=== PATIENT | male | born 1995 | race African-American/Black ===

== ENCOUNTER 2016-12-12 14:14 | Emergency (ER) | payer MEDICAID, OTHER ==
[~2016-12-12] VITALS: Ht 185.4 cm; Wt 70.3 kg
[~2016-12-12 14:14] MED LIST: ALBUTEROL SULF8.5 GM INH; AZITHROMYCIN250 MG ORAL; CIPROFLOXACIN500 M2 ORAL; COLACE100 MG ORAL; CYCLOBENZAPRINE10 MG ORAL; DOXYCYCLINE MO100 MG ORAL; IBUPROFEN600 MG ORAL; KEFLEX500 MG PO; MAGNESIUM CITR296 M1 PO; MOTRIN800 MG PO; MUCINEX600 MG PO; NKM; NORCO 5-325 TA1 EACH ORAL; NYSTATIN15 GM TOPIC; OFLOXACIN5 ML LEFT EYE; ONDANSETRON ODT4 MG ORAL; PHENERGAN/CODE120 ML PO; PHENERGAN25 M1 PO; PREPARATION H1 EACH RC; PROMETHAZINE-C118 M1 ORAL; PROMETHAZINE-D118 ML ORAL; ROBITUSSIN DM5 ML GT; ZITHROMAX250 MG ORAL
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
[2016-12-12] MEDS ORDERED: Norco 5mg/325mg tab ORAL ONE (15:30)
[2016-12-12] MEDS ORDERED: IBUPROFEN600 MG ORAL (15:58)
[2016-12-12 16:08] VITALS: BP 108/67
--- NOTE | 2016-12-12 23:57 | Diagnostic Imaging Report ---
Indications: Pain Technique: Two views of the right humerus Comparison: None Findings: No acute fractures. No dislocations. Joint spaces are preserved Impression: Negative
== END 2016-12-12 16:08 | disposition home or self-care (01) ==
LOC: EMR 15:46
DX: S46.311A Strain of muscle, fascia and tendon of triceps, right arm, initial encounter (principal); S40.021A Contusion of right upper arm, initial encounter; W22.09XA Striking against other stationary object, initial encounter; Y92.9 Unspecified place or not applicable
CPT/HCPCS: 99283

== ENCOUNTER 2017-10-10 22:03 | Emergency (ER) | payer SELFPAY ==
[~2017-10-10] VITALS: Ht 188 cm; Wt 72.1 kg
--- NOTE | 2017-10-10 22:27 | Emergency Room Report ---
History of Present Illness General Chief Complaint: Abdominal Pain Source: Patient Present Illness HPI This a 21-year-old male with no past medical history. He presents with chief complaint abdominal pain for the last 2-3 days. Crampy in nature. Lots of diarrhea. No fever chills but no nausea no vomiting. Does have some mild dysuria with a slight discharge. Has been here frequently in the past for STD. Allergies: Coded Allergies: No Known Allergies (Unverified , 06/13/12) Patient History Past Medical History: see triage record, old chart reviewed Past Surgical History: none Pertinent Family History: none Social History: Denies: smoking Immunizations: other Reviewed Nursing Documentation: PMH: Agreed; PSxH: Agreed Nursing Documentation-PMH Past Medical History: No Stated History Review of Systems Eye: Denies: eye pain, blurred vision ENT: Denies: ear pain, nose congestion, throat swelling Respiratory: Denies: cough, shortness of breath Cardiovascular: Denies: chest pain, palpitations Gastrointestinal: Reports: abdominal pain, diarrhea; Denies: nausea, vomiting Musculoskeletal: Denies: back pain, joint pain Skin: Denies: rash Neurological: Denies: headache, numbness Endocrine: Denies: increased thirst, increased urine Hematologic/Lymphatic: Denies: easy bruising All Other Systems: negative except mentioned in HPI Physical Exam Vital Signs Date Time Temp Pulse Resp B/P (MAP) Pulse Ox O2 Delivery O2 Flow Rate FiO2 10/10/17 22:05 97.9 55 16 112/60 96 Room Air 97.9 vitals normal Sp02 EP Interpretation: reviewed, normal General Appearance: well appearing, no apparent distress, alert Head: normocephalic, atraumatic Eyes: bilateral eye PERRL, bilateral eye EOMI ENT: hearing grossly normal, normal pharynx Neck: full range of motion, supple, no meningismus Respiratory: chest non-tender, lungs clear, normal breath sounds Cardiovascular #1: regular rate, rhythm, no murmur Gastrointestinal: no mass, no organomegaly, no bruit, non-distended, abnormal bowel sounds - increased bowel sounds with gurgling sounds, tenderness - mild Genitourinary: normal inspection, penis normal, scrotum normal, other - no discharge Musculoskeletal: back normal, gait/station normal, normal range of motion Neurologic: alert, oriented x3 Psychiatric: mood/affect normal Skin: warm/dry Medical Decision Making Diagnostic Impression: Primary Impression: Abdominal pain Qualified Codes: R10.84 - Generalized abdominal pain Additional Impression: Urethritis, nonspecific ER Course Patient with abdominal pain. Most likely gastroenteritis with his diarrhea. No evidence of obstruction or acute abdomen. He has no discharge seen on my exam. Most likely Chlamydia. We will go ahead and treat. We'll discharge home. He said he had HIV testing done a few days ago and waiting for results. Lab Results Impression labs unremarkable Last Vital Signs Date Time Temp Pulse Resp B/P (MAP) Pulse Ox O2 Delivery O2 Flow Rate FiO2 10/10/17 22:05 97.9 55 16 112/60 96 Room Air 97.9 Status: improved Disposition: HOME, SELF-CARE Condition: Stable Patient Instructions: Abdominal Pain, Adult Additional Instructions: Follow-up your DrMyra in 3-5 days. Return if worse. KAZ DANIELSON M.D. October 10, 2017 22:27
[2017-10-10] MEDS ORDERED: Ketorolac 30mg Inj IV ONE (22:30)
[2017-10-10 22:36] LABS: APPEARANCE,URINE CLEAR; BILIRUBIN, URINE NEGATIVE (NEGATIVE); COLOR,URINE AMBER; GLUCOSE, URINE (UA) NEGATIVE (NEGATIVE); KETONES,URINE NEGATIVE (NEGATIVE); LEUKOCYTE ESTERASE ,URINE NEGATIVE (NEGATIVE); NITRITE,URINE NEGATIVE (NEGATIVE); PH,URINE 6 (4.5-8.0); PROTEIN,URINE NEGATIVE (NEGATIVE); UROBILINOGEN,URINE NORMAL MG/DL (0.0-1.0)
[2017-10-10 22:43] VITALS: BP 116/64
[2017-10-10 23:12] LABS: ANION GAP 6 mmol/L (5-15); BLOOD UREA NITROGEN 7 mg/dL (7-18); CALCIUM 9.3 MG/DL (8.5-10.1); CARBON DIOXIDE 31 MMOL/L (21-32); CHLORIDE 102 MMOL/L (98-107); CREATININE 1.2 MG/DL (0.55-1.30); SODIUM 139 MMOL/L (136-145)
[2017-10-10 23:20] LABS: ALANINE AMINOTRANSFERASE 6 U/L (12-78); ALBUMIN 4.5 G/DL (3.4-5.0); ALBUMIN/GLOBULIN RATIO 1.2 (1.0-2.7); ALKALINE PHOSPHATASE 58 U/L (46-116); ASPARTATE AMINO TRANSFERASE 17 U/L (15-37); BILIRUBIN,TOTAL 0.6 MG/DL (0.2-1.0)
[2017-10-10 23:22] LABS: BASOPHILS % (AUTO) 2.6 % (0.0-2.0); EOSINOPHILS % (AUTO) 2.1 % (0.0-3.0); HEMATOCRIT 48.3 % (42.0-52.0); HEMOGLOBIN 16.2 G/DL (14.2-18.0); LYMPHOCYTES % (AUTO) 51.1 % (20.0-45.0); MEAN CORPUSCULAR VOLUME 90 FL (80-99); MONOCYTES % (AUTO) 7.3 % (1.0-10.0); NEUTROPHILS % (AUTO) 36.9 % (45.0-75.0); PLATELET COUNT 207 K/UL (150-450); RED BLOOD COUNT 5.37 M/UL (4.70-6.10); RED CELL DISTRIBUTION WIDTH 12.2 % (11.6-14.8); WHITE BLOOD COUNT 3.9 K/UL (4.8-10.8)
[2017-10-10 23:54] VITALS: BP 114/70
[2017-10-11] MEDS ORDERED: Azithromycin 250mg tab ORAL ONE
[2017-10-11 00:27] VITALS: BP 110/72
== END 2017-10-11 00:30 | disposition home or self-care (01) ==
LOC: EMR 22:35
DX: R10.9 Unspecified abdominal pain (principal); N34.2 Other urethritis; R19.7 Diarrhea, unspecified
CPT/HCPCS: 36415; 80053; 81003; 83690; 85025; 96374; 96375; 99283; J1885

== ENCOUNTER 2019-02-16 16:00 | Emergency (ER) | payer MEDICAID ==
[~2019-02-16] VITALS: Ht 185.4 cm; Wt 69.4 kg
--- NOTE | 2019-02-16 16:56 | Emergency Room Report ---
History of Present Illness General Chief Complaint: Lower Extremity Injury Source: Patient Present Illness HPI 23-year-old male with no significant past medical history here complaining of pain in the left big toe x1 month. Patient reports that he was hiking and he slipped his toe was pulled back 1 month ago however did not follow-up with primary care provider did not have any imaging done. Rating her pain 10 out of 10 has been increasing the past week. Denies any tingling or numbness. Has not been taking medication for pain. Range of motion is intact. Chest pain, shortness of patient, no other associated symptoms. No calf tenderness noted. No motor or sensory deficits noted. No signs of infection noted. Allergies: Coded Allergies: No Known Allergies (Unverified , 06/13/12) Patient History Past Medical History: see triage record Past Surgical History: unable to obtain Pertinent Family History: none Immunizations: UTD Reviewed Nursing Documentation: PMH: Agreed; PSxH: Agreed Nursing Documentation-PMH Past Medical History: No Stated History Review of Systems All Other Systems: negative except mentioned in HPI Physical Exam Vital Signs Date Time Temp Pulse Resp B/P (MAP) Pulse Ox O2 Delivery O2 Flow Rate FiO2 02/16/19 16:10 98.8 89 16 112/62 (79) 98 Room Air Sp02 EP Interpretation: reviewed, normal General Appearance: no apparent distress, alert, GCS 15, non-toxic Head: normocephalic, atraumatic Eyes: bilateral eye normal inspection, bilateral eye PERRL ENT: hearing grossly normal, normal pharynx, no angioedema, normal voice Neck: full range of motion, supple, supple/symm/no masses Respiratory: chest non-tender, lungs clear, normal breath sounds, speaking full sentences Cardiovascular #1: regular rate, rhythm, no edema, no murmur, normal capillary refill Cardiovascular #2: 2+ dorsalis pedis (R), 2+ dorsalis pedis (L) Gastrointestinal: normal inspection, normal bowel sounds, non tender, soft, no mass Genitourinary: normal inspection, no CVA tenderness Musculoskeletal: back normal, gait/station normal, normal range of motion, non- tender, no calf tenderness, swelling - left toe Neurologic: normal inspection, alert, oriented x3, responsive, surety bond agent III-XII nml as tested Psychiatric: normal inspection, judgement/insight normal, memory normal Skin: no rash Lymphatic: normal inspection, no adenopathy Procedures Splinting Splinting : Consent: Verbal Location: left big toe Pre-Made Type: jose g tape and post op shoe Pre-Proc Neuro Vasc Exam: normal Post-Proc Neuro Vasc Exam: normal Patient Tolerated: Well Complications: None Medical Decision Making SASHA Attestation All my diagnosis and treatment plans were reviewed ad discussed with my supervising physician Dr. Orellana Diagnostic Impression: Primary Impression: Toe sprain Additional Impression: Toe fracture ER Course 23-year-old male with no significant past medical history here complaining of pain in the left big toe x1 month. Patient reports that he was hiking and he slipped his toe was pulled back 1 month ago however did not follow-up with primary care provider did not have any imaging done. Rating her pain 10 out of 10 has been increasing the past week. Denies any tingling or numbness. Has not been taking medication for pain. Range of motion is intact. Chest pain, shortness of patient, no other associated symptoms. No calf tenderness noted. No motor or sensory deficits noted. No signs of infection noted. Ddx considered but are not limited to: Toe sprain versus fracture versus strain versus contusion versus ingrown toenail Vital signs: are WNL, pt. is afebrile H&PE are most consistent with: toe sprain ORDERS: toe Xray, ibuprofen ED INTERVENTIONS: Jose G tape and postoperative shoe DISCHARGE: At this time pt. is stable for d/c to home. Will provide printed patient care instructions, and any necessary prescriptions. Care plan and follow up instructions have been discussed with the patient prior to discharge. I gave patient a list of family clinics that he can go to for referral to marketing development specialist if needed Other X-Ray Diagnostic Results Other X-Ray Diagnostic Results : X-Ray ordered: toe # of Views/Limited Vs Complete: 3 View Indication: Pain EP Interpretation: Yes PA Xray: Interpretation reviewed, by supervising MD, and agrees with findings. Interpretation: no dislocation, no soft tissue swelling, no fractures Impression: No acute disease Electronically Signed by: Ernie Diane PA-C Last Vital Signs Date Time Temp Pulse Resp B/P (MAP) Pulse Ox O2 Delivery O2 Flow Rate FiO2 02/16/19 16:10 98.8 89 16 112/62 (79) 98 Room Air Disposition: HOME, SELF-CARE Condition: Stable Scripts Ibuprofen (Ibu) 800 Mg Tablet 800 MG PO BID, #30 TAB Prov: Ernie Parra 02/16/19 Patient Instructions: Crush Injury, Fingers or Toes, [id number], Toe Fracture Additional Instructions: Keep during the postoperative she will follow-up with your primary care provider for referral to marketing development specialist Ernie Parra Feb 16, 2019 16:56
[2019-02-16] MEDS ORDERED: IBU800 MG PO (16:58)
--- NOTE | 2019-02-16 17:00 | NUR ---
ER DISCHARGE NOTE: Patient is cleared to be discharged per ERMD, pt is aox4, on room air, with stable vital signs. pt was given dc and prescription instructions, pt was able to verbalize understanding, pt is able to ambulate with steady gait. pt took all belongings.
--- NOTE | 2019-02-16 17:21 | Diagnostic Imaging Report ---
Indication: Pain. Technique: XRAY Toes 3v L Comparison: None FINDINGS-IMPRESSION: Bone mineralization within normal limits. There is no evidence of acute fracture or dislocation. There is a mild hallux valgus. Mild mallet toe deformities suggested of the second through fourth digits. Correlation with physical exam/range of motion recommended. No radiopaque foreign body.
[2019-02-16 19:19] VITALS: BP 112/62
== END 2019-02-16 17:15 | disposition home or self-care (01) ==
LOC: EMR 16:40
DX: S92.402A Displaced unspecified fracture of left great toe, initial encounter for closed fracture (principal); X50.1XXA Overexertion from prolonged static or awkward postures, initial encounter; Y93.01 Activity, walking, marching and hiking; Y92.9 Unspecified place or not applicable
CPT/HCPCS: 73660; Z7502; 99283

== ENCOUNTER 2020-03-12 13:48 | Emergency (ER) | payer MEDICAID ==
[~2020-03-12] VITALS: Ht 185.4 cm; Wt 70.3 kg
[~2020-03-12 13:48] MED LIST changes: +IBU800 MG PO
--- NOTE | 2020-03-12 14:15 | NUR ---
ED Nurse Note: Patient walke din to ER c/o left shoulder pain after lifting heavy staf yesterday. Patient AAO x4, VSS at this time.
[2020-03-12 14:29] VITALS: BP 111/57
[2020-03-12] MEDS ORDERED: Methocarbamol 750mg tab ORAL ONE (14:30)
[2020-03-12] MEDS ORDERED: Ketorolac 30mg Inj IM ONE (14:30)
[2020-03-12 15:40] VITALS: BP 111/57
--- NOTE | 2020-03-12 15:40 | NUR ---
ED Nurse Note: Pt cleared by health care Provider for discharge. DC instructions/prescription was given and explained to pt and verbalized understanding of teachings. All medical deviecs such as ID band removed. Pt is AAO x4, ambulatory and left with all personal belongings.
--- NOTE | 2020-03-12 15:43 | Emergency Room Report ---
History of Present Illness General Chief Complaint: Upper Extremity Injury Source: Patient Present Illness HPI 24-year-old male with no known treatment hospital history here complaining of left shoulder pain after lifting heavy furniture reports that it might be out of place. Patient has range of motion of the shoulder. Denies any tingling numbness. Has not taken medication for symptom relief. Reports it happened yesterday. Denies other injuries. Patient is neurovascularly intact. Has full strength in upper extremities. No other injuries noted. Allergies: Coded Allergies: No Known Allergies (Unverified , 06/13/12) COVID-19 Screening Contact w/high risk pt: No Experienced COVID-19 symptoms?: No COVID-19 Testing performed [employer]ER: No Patient History Past Medical History: see triage record Past Surgical History: none Pertinent Family History: none Immunizations: UTD Reviewed Nursing Documentation: PMH: Agreed; PSxH: Agreed Nursing Documentation-PMH Past Medical History: No Stated History Review of Systems All Other Systems: negative except mentioned in HPI Physical Exam Vital Signs Date Time Temp Pulse Resp B/P (MAP) Pulse Ox O2 Delivery O2 Flow Rate FiO2 03/12/20 14:05 98.2 68 16 111/57 (75) 99 Room Air Sp02 EP Interpretation: reviewed, normal General Appearance: no apparent distress, alert, GCS 15, non-toxic Head: normocephalic, atraumatic Eyes: bilateral eye normal inspection, bilateral eye PERRL ENT: hearing grossly normal, normal pharynx, no angioedema, normal voice Respiratory: chest non-tender, lungs clear, normal breath sounds, speaking full sentences Cardiovascular #1: regular rate, rhythm, no edema Cardiovascular #2: 2+ radial (R), 2+ radial (L) Gastrointestinal: normal bowel sounds, non tender, soft, non-distended, no guarding, no rebound Rectal: deferred Genitourinary: no CVA tenderness Musculoskeletal: back normal, no calf tenderness, non-tender, other - No impingement sign noted Neurologic: alert, motor strength/tone normal, oriented x3, sensory intact, responsive, speech normal Psychiatric: judgement/insight normal, memory normal, mood/affect normal, no suicidal/homicidal ideation Skin: no rash Lymphatic: no adenopathy Procedures Splinting Splinting : Consent: Verbal Location: Left shoulder Pre-Made Type: Shoulder sling Pre-Proc Neuro Vasc Exam: normal Post-Proc Neuro Vasc Exam: normal Patient Tolerated: Well Complications: None Medical Decision Making PA Attestation All my diagnosis and treatment plans were reviewed ad discussed with my supervising physician Dr. Crowe Diagnostic Impression: Primary Impression: Shoulder sprain ER Course 24-year-old male with no known treatment hospital history here complaining of left shoulder pain after lifting heavy furniture reports that it might be out of place. Patient has range of motion of the shoulder. Denies any tingling numbness. Has not taken medication for symptom relief. Reports it happened yesterday. Denies other injuries. Patient is neurovascularly intact. Has full strength in upper extremities. No other injuries noted. Ddx considered but are not limited to : Shoulder sprain versus strain versus fracture versus dislocation Vital signs: are WNL, pt. is afebrile H&PE are most consistent with: Shoulder sprain ORDERS: Shoulder x-ray, Robaxin, ibuprofen, lidocaine patch ED INTERVENTIONS: Toradol, Robaxin DISCHARGE: At this time pt. is stable for d/c to home. Will provide printed patient care instructions, and any necessary prescriptions. Care plan and follow up instructions have been discussed with the patient prior to discharge. Patient taking occasional Zyrtec, follow-up with primary care provider, if worsening symptoms return to the emergency room Other X-Ray Diagnostic Results Other X-Ray Diagnostic Results : X-Ray ordered: Left shoulder # of Views/Limited Vs Complete: 3 View Indication: Pain EP Interpretation: Yes PA Xray: Interpretation reviewed, by supervising MD, and agrees with findings. Interpretation: no dislocation, no soft tissue swelling, no fractures Impression: No acute disease Electronically Signed by: Ernie Diane PA-C Last Vital Signs Date Time Temp Pulse Resp B/P (MAP) Pulse Ox O2 Delivery O2 Flow Rate FiO2 03/12/20 14:29 98.2 16 111/57 99 Room Air 03/12/20 14:05 68 Disposition: HOME, SELF-CARE Condition: Stable Scripts Lidocaine Patch* (Lidoderm Patch*) 1 Each Adh..patch 1 PATCH TOPIC DAILY, #30 PATCH Patch(es) may remain in place for up to 12 hours in any 24-hour period. Prov: Ernie Parra 03/12/20 Ibuprofen* (MOTRIN*) 600 Mg Tablet 600 MG ORAL Q6H PRN for For Pain, #30 TAB 0 Refills Prov: Ernie Parra 03/12/20 Methocarbamol* (ROBAXIN-500*) 500 Mg Tablet 500 MG ORAL TID PRN for For Pain, #15 TAB 0 Refills Prov: Ernie Parra 03/12/20 Patient Instructions: Shoulder Sprain Additional Instructions: Take medication as directed, follow primary care provider, worsening symptoms return to the emergency room Ernie Parra Mar 12, 2020 15:43
[2020-03-12] MEDS ORDERED: ROBAXIN-500MG ORAL (15:44)
[2020-03-12] MEDS ORDERED: LIDODERM700 M1 TOPIC (15:44)
[2020-03-12] MEDS ORDERED: IBUPROFEN600 M1 ORAL (15:44)
--- NOTE | 2020-03-12 19:25 | Diagnostic Imaging Report ---
Indication: Pain Technique: 3 views of the left shoulder Comparison: None Findings: No acute fractures or dislocations. Joint spaces are preserved. Impression: Negative
== END 2020-03-12 15:40 | disposition home or self-care (01) ==
LOC: EMR 14:32
DX: S43.402A Unspecified sprain of left shoulder joint, initial encounter (principal); X50.0XXA Overexertion from strenuous movement or load, initial encounter; Y92.9 Unspecified place or not applicable
CPT/HCPCS: 73030; 96372; J1885; Z7502; 99283